=== PATIENT | female | born 1960 | race Caucasian/White ===

== ENCOUNTER 2019-10-11 07:58 | Outpatient (CLI) | payer OTHER, SELFPAY ==
--- NOTE | ~2019-10-11 | DEXA_ITS ---
BMD(1) Young-Adult(2) Age-Matched(3) Region (g/cm2) T-score Z-score WHO Classification L1 1.059 -0.7 -0.2 Normal L2 1.201 -0.1 0.4 Normal L3 1.151 -0.5 0.0 Normal L4 1.033 -1.4 -1.0 Osteopenia L1-L4 1.104 -0.7 -0.2 Normal Trend: L1-L4 Change vs Change vs Measured Age BMD(1) Baseline Previous Date (years) (g/cm2) (%) (%) 10/11/2019 [age] 1.104 baseline - 1 - Statistically 68% of repeat scans fall within 1SD (+- 0.010 g/cm2 for AP Spine L1-L4) 2 - [place] (Combined NHANES (ages 20-30) / Codasip (ages 20-40)) AP Spine Reference Population (v112) 3 - Matched for Age, Weight (females 25-100 kg), Ethnic 11 - World Health Organization - Definition of Osteoporosis and Osteopenia for Women: Normal = T-score at or above -1.0 SD; Osteopenia = T-score between -1.0 and -2.5 SD; Osteoporosis = T-score at or below -2.5 SD; (WHO definitions only apply when a young healthy Women reference database is used to determine T-scores.) Printed: 10/11/2019 8:59:58 AM (13.60)76:3.00:50.00:12.0 0.00:10.08 0.60x1.05 22.8:%Fat=43.8% 0.00:0.00 0.00:0.00 Verify bone is centered and there is sufficient tissue next to bone. Filename: [id number] Scan Mode: Standard;[employer] 37.0 [employer] [id number] BMD(1) Young-Adult(2,7) Age-Matched(3) Region (g/cm2) T-score Z-score WHO Classification Neck Left 0.782 -1.8 -1.0 Osteopenia Right 0.830 -1.5 -0.7 Osteopenia Mean 0.806 -1.7 -0.9 Osteopenia Difference 0.048 0.3 0.3 - Total Left 0.811 -1.6 -1.1 Osteopenia Right 0.880 -1.0 -0.6 Normal Mean 0.846 -1.3 -0.9 Osteopenia Difference 0.070 0.6 0.6 - Hip [place] Length Comparison (mm) (Right = 116.3 mm) (Mean = 109.0 mm) (Left = 120.2 mm) Trend: Total Mean Change vs Change vs Measured Age BMD(1) Baseline Previous Date (years) (g/cm2) (%) (%) 10/11/2019 59.1 0.846 baseline - 1 - Statistically 68% of repeat scans fall within 1SD (+- 0.010 g/cm2 for DualFemur Total) 2 - [place] (Combined NHANES (ages 20-30) / Codasip (ages 20-40)) Femur Reference Population (v112) 3 - Matched for Age, Weight (females 25-100 kg), Ethnic 7 - DualFemur Total T-score difference is 0.6. Asymmetry is Mild. 11 - World Health Organization - Definition of Osteoporosis and Osteopenia for Women: Normal = T-score at or above -1.0 SD; Osteopenia = T-score between -1.0 and -2.5 SD; Osteoporosis = T-score at or below -2.5 SD; (WHO definitions only apply when a young healthy Women reference database is used to determine T-scores.) Printed: 10/11/2019 8:59:59 AM (13.60); Filename: [id number]; Right Femur; 18.8:%Fat=33.0%; Neck Angle (deg)= 54; Scan Mode: Standard 37.0 uGy; Left Femur; 19.2:%Fat=32.9%; Neck Angle (deg)= 56; Scan Mode: Standard 37.0 uGy CSR [id number] Dear Romero Powell, Rebeca patient Yeny Cobb completed a BMD test on 10/11/2019 using the CSR DXA System (analysis version: 13.60) manufactured by [employer]. The following summarizes the results of our evaluation. PATIENT BIOGRAPHICAL: Name: Yeny Cobb Date: 1960 Height: 67.0 in. Gender: Female Exam Date: 10/11/2019 W
--- NOTE | ~2019-10-11 | XR_ITS ---
[id number] 10/11/2019 08:27 Indication: Right-sided neck pain for 2 months Procedure: 3 view cervical spine Comparison: No prior studies for comparison. Findings: There is straightening of cervical lordosis. Vertebral body heights are maintained. No sign ificant disc narrowing. No prevertebral soft tissue swelling. Odontoid process is normal. There is mi ld uncinate degenerative change at multiple levels. Lung apices are normal. Impression: 1: Mild cervical spondylosis with straightening of normal lordosis. Reviewed, dictated and finalized at location B. ER PRICER Impression: 1: Mild cervical spondylosis with straightening of normal lordosis.
--- NOTE | ~2019-10-11 | MM_ITS ---
EXAMINATION: MM screening damian BI w michael HISTORY: Screening mammogram TECHNIQUE: Craniocaudal and mediolateral oblique 3-D tomosynthesis images were obtained and synthetic 2-D images were generated. CAD analysis was submitted and interpreted. COMPARISON: No prior mammogram is available for comparison at this institution. BREAST PARENCHYMAL COMPOSITION: There are scattered areas of fibroglandular density. FINDINGS: There is no evidence of suspicious mass, calcification, or architectural distortion to sugg est malignancy in either breast. There has been no suspicious interval change. IMPRESSION: 1. No mammographic evidence of malignancy. 2. Recommend routine screening mammography in one year. BI-RADS Category 1: Negative Reviewed, dictated and finalized at location A. N [employer] BENEFITS SPECIALIST
[2019-10-11 08:10] LABS: Add Urine Microscopic? YES; Appearance Urine Clear (Clear); Basophils Absolute Auto 0.04 K/mm3 (0.00-0.10); Basophils Percent Auto 0.7 % (0.0-1.0); Bilirubin Urine Negative (Negative); Blood Urine 1+ (Negative); Color Urine Yellow (Yellow); Eosinophils Absolute Auto 0.27 K/mm3 (0.02-0.50); Eosinophils Percent Auto 4.4 % (1.0-6.0); Glucose Urine UA Negative (Negative); Hematocrit 43.5 % (35.0-49.0); Hemoglobin 14.5 g/dL (12.0-15.0); Immature Granulocyte Absolute 0.01 K/mm3 (0.00-0.00); Immature Granulocyte Percent A 0.2 % (0.0-0.0); Ketones Urine Negative (Negative); Leukocyte Esterase Ur 2+ LEU/UL (Negative); Lymphocytes Absolute Auto 2.55 K/mm3 (1.10-4.50); Lymphocytes Percent Auto 41.6 % (18.0-42.0); Mean Corpuscular HGB Conc 33.3 g/dL (32.0-36.0); Mean Corpuscular Hemoglobin 30.7 pg (27.0-31.0); Mean Platelet Volume 9.8 fl (9.2-11.8); Monocytes Absolute Auto 0.59 K/mm3 (0.10-0.90); Monocytes Percent Auto 9.6 % (2.0-11.0); Neutrophils Absolute Auto 2.7 K/mm3 (1.7-7.2); Neutrophils Percent Auto 43.5 % (50.0-70.0); Nitrate Urine Negative (Negative); Platelet Count Result 241 K/mm3 (150-420); Protein Urine Negative (Negative); Red Blood Count 4.73 M/mm3 (4.20-5.40); Red Cell Distribution Width 11.7 % (11.6-14.4); Specific Grav Ur >= 1.030 (1.010-1.020); Urobilinogen Urine 0.2 mg/dL (0.2-1.0); White Blood Count 6.1 K/mm3 (4.8-10.8); pH Urine 5.5 (5.0-8.0)
[2019-10-11 08:30] LABS: Bacteria Urine 4+ /hpf; Mucus Urine Heavy /lpf; Squamous Epithelial Cell Urine Moderate /hpf (Few)
[2019-10-11 09:21] LABS: Alanine Aminotransferase 30 U/L (14-59); Albumin Level 4.1 g/dL (3.4-5.0); Alkaline Phosphatase 58 U/L (46-116); Anion Gap 11.2 mmol/L (7-16); Aspartate Amino Transferase 17 U/L (15-37); Bilirubin,Total 0.5 mg/dL (0.00-1.00); Blood Urea Nitrogen 24 mg/dL (7-18); Calcium 9.3 mg/dL (8.5-10.1); Carbon Dioxide 29 mmol/L (21-32); Chloride 106 mmol/L (98-108); Cholesterol 266 mg/dL (0-200); Estimated Glomerular Filt Rate > 60; Free T4 Free Thyroxine 1.13 ng/dL (0.76-1.46); Glucose 103 mg/dL (70-99); HDL Direct 70 mg/dL (40-60); LDL Cholesterol Calculated 173 mg/dL (<130); Osmolality Calculated 298 mOsm/kg (285-295); Potassium 4.2 mmol/L (3.5-5.1); Sodium 142 mmol/L (136-145); Thyroid Stimulating Hormone 2.08 uIU/mL (0.36-3.74); Total Protein 7.3 g/dL (6.4-8.2); Triglycerides 113 mg/dL (0-150)
[2019-10-11 16:04] LABS: Hemoglobin A1C 6.4 % (<5.7)
== END 2019-10-11 07:59 | disposition home or self-care (01) ==
LOC: CHSIMG 08:00
PROVIDERS: PCP Internal Medicine; Visit Provider Nurse Practitioner Family
DX: Z12.31 Encounter for screening mammogram for malignant neoplasm of breast (principal); Z78.0 Asymptomatic menopausal state; Z00.00 Encounter for general adult medical examination without abnormal findings; M54.2 Cervicalgia; R82.90 Unspecified abnormal findings in urine
CPT/HCPCS: 36415; 72040; 77063; 77067; 77080; 80053; 80061; 81001; 83036; 84439; 84443; 85025; 87086; 87088

== ENCOUNTER 2020-10-15 10:42 | Outpatient (CLI) | payer OTHER, SELFPAY ==
--- NOTE | ~2020-10-15 | MM_ITS ---
EXAMINATION: MM screening damian BI w michael HISTORY: Screening mammogram TECHNIQUE: Craniocaudal and mediolateral oblique 3-D tomosynthesis images were obtained and synthetic 2-D images were generated. CAD analysis was submitted and interpreted. COMPARISON: 10/11/2019 bilateral screening mammogram BREAST PARENCHYMAL COMPOSITION: There are scattered areas of fibroglandular density. FINDINGS: There is no evidence of suspicious mass, calcification, or architectural distortion to sugg est malignancy in either breast. There has been no suspicious interval change. IMPRESSION: 1. No mammographic evidence of malignancy. 2. Recommend routine screening mammography in one year. BI-RADS Category 1: Negative Reviewed, dictated and finalized at location A. ROLLER
== END 2020-10-15 10:43 | disposition home or self-care (01) ==
LOC: CHSIMG 10:43
PROVIDERS: PCP Internal Medicine; Visit Provider Internal Medicine
DX: Z12.31 Encounter for screening mammogram for malignant neoplasm of breast (principal)
CPT/HCPCS: 77063; 77067

== ENCOUNTER 2023-03-09 11:04 | Outpatient (CLI) | payer BC, SELFPAY ==
--- NOTE | ~2023-03-09 | XR_ITS ---
AP and lateral views of the right hip Clinical history: Pain Findings: No acute fracture or dislocation is seen. Osseous alignment is anatomic. Bilateral hip and SI joint spaces are preserved. Soft tissues are unremarkable. Impression: No significant abnormality is seen. Reviewed, dictated and finalized at location . Impression: No significant abnormality is seen.
--- NOTE | ~2023-03-09 | XR_ITS ---
Lumbosacral Spine: AP and lateral views Clinical History: Pain Findings: There is partially imaged levoscoliosis of the thoracolumbar spine. There is moderate to ad vanced facet arthropathy throughout the lumbar spine. Minimal grade 1 retrolisthesis of L5 over S1 no giovany. No fracture evident. The intervertebral disc spaces are preserved. The sacroiliac joints are no rmally outlined. Impression: Partially imaged levoscoliosis of the thoracolumbar spine, in the range of 40 degrees, with extensive moderate to severe facet arthropathy. Minimal grade 1 retrolisthesis of L5 over S1. Reviewed, dictated and finalized at location . Impression: Partially imaged levoscoliosis of the thoracolumbar spine, in the range of 40 d egrees, with extensive moderate to severe facet arthropathy. Minimal grade 1 retrolisthesis of L5 over S1.
== END 2023-03-09 11:05 | disposition home or self-care (01) ==
LOC: CHSIMG 11:11
PROVIDERS: PCP Internal Medicine; Visit Provider Nurse Practitioner Family
DX: M54.50 Low back pain, unspecified (principal); M25.551 Pain in right hip; M41.85 Other forms of scoliosis, thoracolumbar region; M43.17 Spondylolisthesis, lumbosacral region
CPT/HCPCS: 72100; 73502